=== PATIENT | female | born 1950 | race Caucasian/White ===

== ENCOUNTER → 2016-10-04 | Outpatient (CLI) | payer MEDICARE ==
[2016-08-07 17:20] VITALS: BP 117/48
[~2016-10-04] MED LIST: ASPI325T8 PO; FURO-69 PO; HYDR12.53 PO; LOSA50TA6 PO; MELO15TA23 PO; METO25TA4 PO; MIRA50TA PO; NAPR500T3 PO; SERT50TA8 PO; TRAM50TA PO; ZOLPIDEM 5 MG TABLET. PO ONE
--- NOTE | 2016-10-09 22:12 | SLEEP ---
DATE OF STUDY: 10/04/2016 ATTENDING PHYSICIAN: Dr. Isaac Mcgill. REFERRED BY: CHAZ Chappell. The patient is 66 years old who weighs 260 pounds with a BMI of 39. The patient's [place] score was 10. A split night study was performed at [facility]. During the night study, the patient spent 501 minutes in bed and slept for 395 minutes with a sleep efficiency of 79%. Sleep latency was 60 minutes with a REM latency of 175 minutes. Overall, sleep architecture showed normal stage I sleep, slightly reduced stage II sleep, increased slow wave and normal REM sleep. During the initial diagnostic portion of the study, the patient slept for 175 minutes. During this time, there were no obstructive apneas. There were 32 mixed apneas and no central apneas. The patient had 5 hypopneas. The patient's apnea hypopnea index during the diagnostic portion was 13 per hour with a supine index of 14 per hour and a REM index of 45 per hour. Review of nocturnal oximetry study revealed a mean oxygen saturation of 96% with the lowest of 72%. 7% of time oxygen saturation remained between 80% and 89% and 3% of time between 70 and 79%. EKG monitoring revealed an average heart rate of 62 beats per minute. No sustained arrhythmias were observed. PLMS were seen at index of 61 per hour and 1 per hour caused EEG arousals. The patient met the split night criteria for CPAP initiation. It was started at 5 cm water and titrated up to 12 cm of water. At the final pressure, the patient slept for 42 minutes. The patient had a REM and supine sleep. The patient's AHI was reduced to only 3 per hour and oxygen saturation remained above 88%. The patient used a small size nasal mask. IMPRESSION: 1. Mild sleep apnea-hypopnea syndrome with worsening during REM sleep. Total AHI of 13 per hour with a REM AHI of 45 per hour. 2. Mild nocturnal hypoxia secondary to obstructive sleep apnea, but resolved with CPAP. 3. Severe PLMS. RECOMMENDATIONS: 1. CPAP at 12 cm of water completely eliminated the patient's sleep apnea and should be used on a nightly basis. 2. Follow up in 4-6 weeks to assess compliance with CPAP and to document clinical improvement. 3. Weight loss is strongly advised. 4. Avoid [employer] depressants. 5. Caution regarding driving until symptoms of sleep apnea resolve with the use of CPAP. 6. PLMS does not need to be treated unless the patient has symptoms of restless legs during the day. 7. The patient uses small size nasal mask. HIEU MAX MD DR: MARCELL/nelson JOB#: [id number] / [id number] KATI Hayes HALLA MD
== END | disposition home or self-care (01) ==
LOC: SLPLAB 18:27
PROVIDERS: ATTEND Physician Assistant Surgical
DX: R53.83 Other fatigue (principal)
CPT/HCPCS: 95810

== ENCOUNTER 2017-07-19 22:05 | Emergency (ER) | payer MEDICARE, OTHER ==
[2017-07-19 22:50] LABS: BILIRUBIN,URINE SMALL (NEG); CLARITY,URINE CLEAR; COLOR,URINE YELLOW; GLUCOSE,URINE NEGATIVE (NEG); NITRITE,URINE NEGATIVE (NEG); PH,URINE 5.5; PROTEIN,URINE NEGATIVE (NEG-TRACE)
[2017-07-19 23:06] LABS: ADD MAN DIFF? NO
[2017-07-19 23:08] LABS: BASO # 0.1 x10^3/uL (0.0-0.2); BASO % 1 % (0-3); EOS # 0.7 x10^3/uL (0.0-0.7); EOS % 7 % (0-3); HEMATOCRIT 41.4 % (36.0-47.0); HEMOGLOBIN 14.6 g/dL (12.0-15.5); LYMPH # 2.5 x10^3/uL (1.0-4.8); LYMPH % 27 % (24-48); MEAN CORPUSCULAR HEMOGLOBIN 32 pg (25-35); MEAN CORPUSCULAR HGB CONC 35 g/dL (31-37); MEAN CORPUSCULAR VOLUME 92 fL (79-100); MONO # 0.9 x10^3/uL (0.0-1.1); MONO % 9 % (0-9); NEUT # 5.4 x10^3uL (1.8-7.7); NEUT % 56 % (31-73); PLATELET COUNT 345 x10^3/uL (140-400); RED BLOOD COUNT 4.51 x10^6/uL (3.50-5.40); RED CELL DISTRIBUTION WIDTH 12.9 % (11.5-14.5); WHITE BLOOD COUNT 9.6 x10^3/uL (4.0-11.0)
[2017-07-19 23:26] LABS: RBC,URINE OCC /HPF (0-2)
[2017-07-19 23:27] LABS: BACTERIA,URINE FEW /HPF (0-FEW); SQUAMOUS EPITHELIAL CELL,UR MOD /LPF; WBC,URINE 0 /HPF (0-4)
[2017-07-19 23:31] LABS: ANION GAP 8 (6-14); BLOOD UREA NITROGEN 20 mg/dL (7-20); BUN/CREATININE RATIO 20 (6-20); CARBON DIOXIDE 30 mmol/L (21-32); CHLORIDE 103 mmol/L (98-107); GLUCOSE 146 mg/dL (70-99); POTASSIUM 3.7 mmol/L (3.5-5.1); SODIUM 141 mmol/L (136-145)
[2017-07-19 23:33] LABS: NT-PRO BNP 35 pg/mL (0-124)
[2017-07-19 23:33] LABS: ALBUMIN 3.5 g/dL (3.4-5.0); ALBUMIN/GLOBULIN RATIO 0.8 (1.0-1.7); ALK PHOS 115 U/L (46-116); ALT (SGPT) 29 U/L (14-59); AST (SGOT) 22 U/L (15-37); TOTAL BILIRUBIN 0.3 mg/dL (0.2-1.0); TOTAL PROTEIN 7.8 g/dL (6.4-8.2)
[2017-07-19] MEDS: FUROSEMIDE 40 MG/4 ML VIAL. IVP (23:34)
[2017-07-19 23:37] LABS: TROPONINI < 0.017 ng/mL (0.000-0.055)
== END 2017-07-20 00:05 | disposition home or self-care (01) ==
LOC: ER 07-20 00:05
DX: R60.0 Localized edema (principal); M79.605 Pain in left leg; M79.604 Pain in right leg; E11.9 Type 2 diabetes mellitus without complications; I10 Essential (primary) hypertension
CPT/HCPCS: 36415; 71045; 80053; 81001; 83880; 84484; 85025; 93005; 96374; 99285; J1940

== ENCOUNTER → 2018-01-04 | Outpatient (CLI) | payer MEDICARE ==
[2017-07-19 23:35] VITALS: BP 124/91
[~2018-01-04] MED LIST changes: -LOSA50TA6 PO; +LOSA50TA7 PO; +NAPR-514 PO; -NAPR500T3 PO; -ZOLPIDEM 5 MG TABLET. PO ONE
--- NOTE | 2018-01-04 13:17 | RAD ---
MRI Lumbar Spine without contrast History: Low back pain, bilateral leg radiculopathy for one year Technique: Multiplanar, multi sequential noncontrast MR imaging was performed of the lumbar spine. Contrast: None Comparison: None Findings: Lumbar vertebral body stature is maintained. There is grade 1 anterior spondylolisthesis L4-5. There is negligible posterior subluxation L3 relative L4. There is moderate degenerative disc disease L4-5 and minimally L3-4 and L2-3, mild disc desiccation L5-S1. Conus terminates at L1. There is no significant marrow edema. There is very mild lumbar levoscoliosis. L2-L3: There is moderate facet hypertrophic change and buckling of the ligamentum flavum. There is prominence of posterior epidural fat. There is negligible disc osteophyte complex. Neural foramina are adequate. Spinal canal is overall adequate. L3-L4: There is moderate to severe buckling of the ligamentum flavum and moderate facet hypertrophic change. Neural foramina are adequate. There is moderate to severe spinal stenosis with limited preserved subarachnoid space. L4-L5: There is severe facet hypertrophic change. There is mild buckling of the ligamentum flavum greater on the right. There is partial uncovering of the posterior aspect of the disc due to spondylolisthesis. There is severe spinal stenosis with limited preserved subarachnoid space, right greater than left lateral recess stenosis. There is very mild inferior narrowing of the left neural foramen more distally, right neural foramen adequate. L5-S1: There is moderate to severe right greater than left facet degenerative change and mild buckling of the ligamentum flavum. There is moderate narrowing of the far right lateral recess from posteriorly by facet, minimal narrowing of the far left lateral recess from posteriorly. Central canal is adequate. Neural foramina are adequate. Impression: 1. There is fairly severe spinal stenosis with right greater than left lateral recess stenosis at L4-5 with limited preserved subarachnoid space, also moderate to severe spinal stenosis at L3-4. There is also narrowing of the far right lateral recess at L5-S1. Facet degenerative change and buckling of the ligamentum flavum results in spinal stenosis at these levels. There is grade 1 anterior spondylolisthesis L4-5 due to facet degenerative change. There is moderate degenerative disc disease at L4-5 and minimally at L3-4 and L2-3. Electronically signed by: Tera Oliveira MD (01/04/2018 1:14 PM) [id number]
== END | disposition home or self-care (01) ==
LOC: MRI 11:15
PROVIDERS: ATTEND Physician Assistant Surgical
DX: M51.36 Other intervertebral disc degeneration, lumbar region (principal); M43.16 Spondylolisthesis, lumbar region; M48.061 Spinal stenosis, lumbar region without neurogenic claudication; M48.07 Spinal stenosis, lumbosacral region
CPT/HCPCS: 72148

== ENCOUNTER → 2021-02-18 | Outpatient (CLI) | payer MEDICARE ==
[2017-07-19 23:35] VITALS: BP 124/91
[~2021-02-18] MED LIST changes: -HYDR12.53 PO; +HYDR12.575 PO; +LOSA-73 PO; -LOSA50TA7 PO; +MIRA25TA PO; -MIRA50TA PO; +SERT-267 PO; -SERT50TA8 PO
--- NOTE | 2021-02-18 16:50 | RAD ---
Bilateral digital screening 2-D and 3-D (digital breast tomosynthesis) mammogram: Reason for examination: Routine screening. Comparison: Mammogram from 05/20/2009. Interpretation was made with the benefit of CAD. FINDINGS: Breast density: Category B. There are scattered areas of fibroglandular density. No suspicious breast mass, malignant appearing calcifications, or architectural distortion is seen. IMPRESSION: No evidence of malignancy. Assessment: BI-RADS 1. Negative. Recommendation: Routine screening mammograms. The patient will receive a letter with the results in the mail. Patient information will be entered i nto the mammography reminder system with a target recall date for the next mammogram. A reminder tiago er will be generated. Electronically signed by: Naomi Bah MD (02/18/2021 4:47 PM) [id number]
--- NOTE | 2021-02-18 17:26 | RAD ---
XR KNEE 3 VIEWS History: Reason: PAIN IN RIGHT AND LEFT KNEE, LEFT GREATER THAN RIGHT / Spl. Instructions: / History : Technique: 3 views bilateral knees. Comparison: Tibia and fibula left October 25, 2016. Findings: Left knee: Moderate left knee degenerative changes most prominent within the lateral and patellofemor al compartments with joint space narrowing and osteophyte formation. Lateral distal femur metaphysis osteochondroma measures 2.2 x 1.1 cm. No dislocation. No acute fracture. No significant knee joint ef fusion. Right knee: Mild right knee degenerative changes most prominent within the medial and patellofemoral compartments. No dislocation. No acute fracture. Vascular calcific effusions. No significant knee adalberto nt effusion.. Impression: 1. 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 2. Left lateral distal femur metaphysis osteochondroma, unchanged compared to 2017. Electronically signed by: Law Van DO (02/18/2021 5:24 PM) [id number]
== END ==
LOC: MAMMO 10:11
PROVIDERS: ATTEND Family Medicine
DX: Z12.31 Encounter for screening mammogram for malignant neoplasm of breast (principal); M17.0 Bilateral primary osteoarthritis of knee; D16.22 Benign neoplasm of long bones of left lower limb; M25.862 Other specified joint disorders, left knee; M25.762 Osteophyte, left knee
CPT/HCPCS: 77063; 77067; 73562-50